=== PATIENT | female | born 1930 | race Caucasian/White ===

== ENCOUNTER → 2016-11-16 | Outpatient (CLI) | payer MEDICARE, BC ==
[~2016-11-16] MED LIST: ADALAT CC60 MG PO; ALEVE 220MG220 MG PO; AMBIEN 5MG TABLE5 MG PO; AMOXICILLIN 50500 MG PO; ANTIVERT 25MG25 MG PO; BONIVA150 MG PO; CALCIUM ANTAC1000 M2 PO; CAMPRAL333 MG PO; CEPHALEXIN250 M1 PO; DILAUDID 2MG TAB2 MG PO; EFFER-K10 MEQ PO; EFFEXOR XR75 MG/CAP PO; GLUCOPHAGE500 MG/TAB PO; K-DUR 10 MEQ T10 MEQ PO; K-LOR CON; LEVAQUIN 5500 MG/TA1 PO; LEVAQUIN 5500 MG/TAB PO; LEXAPRO 10MG10 MG PO; LEXAPRO20 MG PO; MELATONIN5 M1 SL; METRONIDAZOLE500 MG PO; MIRAPEX; MIRAPEX0.5 MG PO; MULTIPLE VITAMI1 CAP PO; MULTIVITAMIN1 TA1 PO; MVI; MYLANTA 150 ML150 M1 PO; NORCO 325 MG-51 TAB PO; PRILOSEC 20MG20 MG PO; PROCARDIA XL 6060 MG PO; RISPERDAL 0.5M0.5 MG PO; SENNA8.6 MG PO; SEROQUEL 2525 MG/TAB PO; SEROQUEL50 MG PO; TENORMIN 2525 MG/TAB PO; TRAZODO50 MG PO; TYLENOL 500MG500 MG PO; ULTRAM 50MG TAB50 MG PO; VALIUM 5MG T5 MG/TAB PO; ZOFRAN 4MG T4 MG/TAB PO; ZOSTRIX 0.025% TP; ZYPREXA 5MG5 MG PO
[2016-11-16 18:24] LABS: CALCIUM 9.3 mg/dL (8.4-10.2); CREATININE, serum 0.92 mg/dL (0.52-1.25); POTASSIUM 3.7 mmol/L (3.4-5.0)
== END ==
LOC: ZLAB.STJ 15:25
PROVIDERS: Internal Medicine
DX: Z01.89 Encounter for other specified special examinations (principal)

== ENCOUNTER 2017-02-22 11:09 | Emergency (ER) | payer MEDICARE, BC ==
[~2017-02-22] VITALS: Ht 165.1 cm; Wt 81.8 kg
[~2017-02-22 11:09] MED LIST changes: -AMBIEN 5MG TABLE5 MG PO; -AMOXICILLIN 50500 MG PO; -MELATONIN5 M1 SL; -PROCARDIA XL 6060 MG PO; -RISPERDAL 0.5M0.5 MG PO; -SENNA8.6 MG PO
[2017-02-22 11:13] VITALS: TEMP 97
[2017-02-22] MEDS ORDERED: ZOFRAN 4MG T4 MG/TAB PO (11:32)
[2017-02-22] MEDS ORDERED: PROCARDIA XL 6060 MG PO (11:33)
[2017-02-22] MEDS ORDERED: ZYPREXA 5MG5 MG PO (11:34)
[2017-02-22] MEDS ORDERED: MELATONIN5 M1 SL (11:35)
[2017-02-22] MEDS ORDERED: AMOXICILLIN 50500 MG PO (11:35)
[2017-02-22] MEDS ORDERED: BONIVA150 MG PO (11:36)
[2017-02-22] MEDS ORDERED: AMBIEN 5MG TABLE5 MG PO (11:36)
[2017-02-22] MEDS ORDERED: SENNA8.6 MG PO (11:38)
[2017-02-22] MEDS ORDERED: RISPERDAL 0.5M0.5 MG PO (11:39)
[2017-02-22 12:28] LABS: BASO % 0.3 % (0.0-2.0); EOS # 0.2 (0.0-0.7); EOS % 2.7 % (0-4.0); GRAN # 4.7 (1.4-6.5); GRAN % 63.4 % (42.2-75.2); HEMOGLOBIN 15.5 g/dl (12.5-16.0); LYMPH # 1.6 (1.2-3.4); LYMPH % 21.7 % (20.0-51.0); MEAN CELL VOLUME 93 fl (80.0-100.0); MEAN CORPUSCULAR HEMOGLOBIN 30 pg (27.0-31.0); MEAN CORPUSCULAR HGB CONC 32 g/dl (33.0-37.0); MEAN PLATELET VOLUME 9.8 fl (7.4-10.4); MONO # 0.9 (0.1-0.6); MONO % 11.5 % (1.7-9.3); PLATELET COUNT 271 K/mm3 (130-400); RED BLOOD COUNT 5.19 M/mm3 (4.10-5.30); REDCELL DISTRIBUTION WIDTH-CV 15.5 % (11.5-14.5); WHITE BLOOD COUNT 7.5 K/mm3 (4.8-10.8)
[2017-02-22 12:33] LABS: ALBUMIN 4.4 gm/dL (3.5-5.0); BILIRUBIN,TOTAL 0.5 mg/dL (0.0-1.0); CALCIUM 9.3 mg/dL (8.4-10.2); CREATININE, serum 0.73 mg/dL (0.52-1.25); POTASSIUM 3.7 mmol/L (3.4-5.0); TOTAL PROTEIN 7.9 gm/dL (6.4-8.2)
[2017-02-22 12:45] LABS: PH 7 (5-8); SQUAMOUS EPITHELIAL 0-2 /hpf; URINE APPEARANCE Clear; URINE BACTERIA None Seen /hpf; URINE BILIRUBIN Negative (NEGATIVE); URINE BLOOD Negative (NEGATIVE); URINE COLOR Yellow; URINE GLUCOSE 1+ (NEGATIVE); URINE KETONE Negative (NEGATIVE); URINE RBC 0-2 /hpf; URINE UROBILINOGEN Negative (NEGATIVE); URINE WBC 0-2 /hpf
[2017-02-22 13:57] VITALS: BP 151/90; PULSE 94
== END 2017-02-22 14:02 | disposition home or self-care (01) ==
LOC: COL.ER 11:09
PROVIDERS: Nurse Practitioner
DX: S70.02XA Contusion of left hip, initial encounter (principal); R41.82 Altered mental status, unspecified; E11.9 Type 2 diabetes mellitus without complications; Z79.84 Long term (current) use of oral hypoglycemic drugs; I10 Essential (primary) hypertension; Z87.891 Personal history of nicotine dependence; W06.XXXA Fall from bed, initial encounter; Y92.122 Bedroom in nursing home as the place of occurrence of the external cause

== ENCOUNTER → 2017-05-23 | Outpatient (CLI) | payer MEDICARE, BC ==
[~2017-05-23] MED LIST changes: +AMBIEN 5MG TABLE5 MG PO; +AMOXICILLIN 50500 MG PO; +MELATONIN5 M1 SL; +PROCARDIA XL 6060 MG PO; +RISPERDAL 0.5M0.5 MG PO; +SENNA8.6 MG PO
[2017-05-23 17:09] LABS: BASO % 0.4 % (0.0-2.0); EOS # 0.2 (0.0-0.7); EOS % 2.9 % (0-4.0); GRAN # 4.1 (1.4-6.5); GRAN % 59.4 % (42.2-75.2); HEMOGLOBIN 14.7 g/dl (12.5-16.0); LYMPH # 1.9 (1.2-3.4); LYMPH % 26.9 % (20.0-51.0); MEAN CELL VOLUME 92 fl (80.0-100.0); MEAN CORPUSCULAR HEMOGLOBIN 29 pg (27.0-31.0); MEAN CORPUSCULAR HGB CONC 32 g/dl (33.0-37.0); MEAN PLATELET VOLUME 10.1 fl (7.4-10.4); MONO # 0.7 (0.1-0.6); PLATELET COUNT 329 K/mm3 (130-400); RED BLOOD COUNT 5.02 M/mm3 (4.10-5.30); WHITE BLOOD COUNT 6.9 K/mm3 (4.8-10.8)
== END ==
LOC: ZCOL.LAB 16:58
PROVIDERS: Internal Medicine
DX: I10 Essential (primary) hypertension (principal); E11.9 Type 2 diabetes mellitus without complications

== ENCOUNTER → 2017-05-28 | Outpatient (CLI) | payer MEDICARE, BC ==
[2017-05-28 17:31] LABS: ADJUSTED CALCIUM 9.6 mg/dL (8.4-10.2); ALBUMIN 4.5 gm/dL (3.5-5.0); BILIRUBIN,TOTAL 0.8 mg/dL (0.0-1.0); CREATININE, serum 0.77 mg/dL (0.52-1.25); POTASSIUM 4.4 mmol/L (3.4-5.0)
== END ==
LOC: ZCOL.LAB 16:37
PROVIDERS: Internal Medicine
DX: E11.9 Type 2 diabetes mellitus without complications (principal)

== ENCOUNTER → 2017-08-21 | Outpatient (CLI) | payer MEDICARE, BC | LOC: ZCOL.LAB 15:24 | PROVIDERS: Internal Medicine | DX: I10 Essential (primary) hypertension (principal) ==

== ENCOUNTER → 2017-09-26 | Outpatient (CLI) | payer MEDICARE, BC ==
[2017-09-26 13:57] LABS: COLLECTION METHOD CLEAN CATCH
[2017-09-26 14:10] LABS: PH 6 (5-8); SQUAMOUS EPITHELIAL None Seen /hpf; URINE APPEARANCE Clear; URINE BACTERIA Rare /hpf; URINE BILIRUBIN Negative (NEGATIVE); URINE BLOOD Negative (NEGATIVE); URINE COLOR Straw; URINE GLUCOSE Negative (NEGATIVE); URINE KETONE Negative (NEGATIVE); URINE LEUKOCYTE ESTERASE 1+ (NEGATIVE); URINE PROTEIN(semi-quant) Negative (NEGATIVE); URINE RBC 0-2 /hpf; URINE UROBILINOGEN Negative (NEGATIVE)
== END ==
LOC: ZCOL.LAB 13:55
PROVIDERS: Nurse Practitioner
DX: R30.0 Dysuria (principal)

== ENCOUNTER 2017-10-07 09:40 | Emergency (ER) | payer MEDICARE, BC ==
[~2017-10-07] VITALS: Ht 152.4 cm; Wt 65.9 kg
[2017-10-07 09:45] VITALS: TEMP 98.1
[2017-10-07 10:31] LABS: COLLECTION METHOD CATHETER
[2017-10-07 10:48] LABS: MUCOUS Present /lpf; PH 5 (5-8); SQUAMOUS EPITHELIAL None Seen /hpf; URINE APPEARANCE Clear; URINE BACTERIA None Seen /hpf; URINE BILIRUBIN Negative (NEGATIVE); URINE BLOOD Negative (NEGATIVE); URINE COLOR Yellow; URINE GLUCOSE Negative (NEGATIVE); URINE KETONE Negative (NEGATIVE); URINE LEUKOCYTE ESTERASE Negative (NEGATIVE); URINE PROTEIN(semi-quant) Negative (NEGATIVE); URINE RBC 0-2 /hpf; URINE UROBILINOGEN Negative (NEGATIVE)
[2017-10-07 10:50] LABS: HEMATOCRIT 42.2 % (37.0-47.0); HEMOGLOBIN 13.8 g/dl (12.5-16.0); MEAN CELL VOLUME 94 fl (80.0-100.0); MEAN CORPUSCULAR HEMOGLOBIN 31 pg (27.0-31.0); MEAN CORPUSCULAR HGB CONC 33 g/dl (33.0-37.0); PLATELET COUNT 216 K/mm3 (130-400); RED BLOOD COUNT 4.49 M/mm3 (4.10-5.30); WHITE BLOOD COUNT 6.9 K/mm3 (4.8-10.8)
[2017-10-07 10:51] LABS: ADD PATHOLOGY DIFF REVIEW NO
[2017-10-07 11:00] LABS: ADJUSTED CALCIUM 9.3 mg/dL (8.4-10.2); ALANINE AMINOTRANSFERASE 22 U/L (9-52); ALBUMIN 3.9 gm/dL (3.5-5.0); ALKALINE PHOSPHATASE 59 U/L (50-136); ANION GAP 9 mmol/L (7-16); BILIRUBIN,TOTAL 0.5 mg/dL (0.0-1.0); BLOOD UREA NITROGEN 21 mg/dL (7-17); CALCIUM 9.2 mg/dL (8.4-10.2); CARBON DIOXIDE 26 mmol/L (22-30); CHLORIDE 106 mmol/L (98-107); CREATININE, serum 1.07 mg/dL (0.52-1.25); GLUCOSE 88 mg/dL (74-106); POTASSIUM 4.5 mmol/L (3.4-5.0); SODIUM 140 mmol/L (137-145); TOTAL PROTEIN 6.8 gm/dL (6.4-8.2)
[2017-10-07 11:03] LABS: C-REACTIVE PROTEIN < 0.5 mg/dL (0.0-0.9)
[2017-10-07 11:45] VITALS: BP 122/50; PULSE 82
[2017-10-07] MEDS ORDERED: TYLENOL 325MG325 MG PO (12:02)
[2017-10-07] MEDS ORDERED: AMOXICILLIN 50500 MG PO (12:04)
[2017-10-07] MEDS ORDERED: ZANTAC 150MG T150 MG PO (12:17)
[2017-10-07] MEDS ORDERED: OYSTERCAL-D 5001 TAB PO (12:18)
[2017-10-07] MEDS ORDERED: ZOCOR 20MG20 MG PO (12:19)
[2017-10-07] MEDS ORDERED: VITAMIN B-1000 MCG/T PO (12:20)
[2017-10-07] MEDS ORDERED: TOPROL XL 25MG25 MG PO (12:23)
[2017-10-07 12:29] LABS: BAND 23 % (0-10); EOSINOPHIL 1 % (0-4); LYMPHOCYTE 47 % (20.0-51.0); MYELOCYTE 1 % (0-0); NEUTROPHILS 28 % (42.0-75.2); PLATELET ESTIMATE NORMAL (NORMAL); TOTAL CELLS COUNTED 100
== END 2017-10-07 11:45 | disposition home or self-care (01) ==
LOC: COL.ER 09:40
PROVIDERS: Family Medicine
DX: N39.0 Urinary tract infection, site not specified (principal); E11.9 Type 2 diabetes mellitus without complications; K21.9 Gastro-esophageal reflux disease without esophagitis

== ENCOUNTER → 2017-11-06 | Outpatient (CLI) | payer MEDICARE, BC ==
[~2017-11-06] MED LIST changes: +OYSTERCAL-D 5001 TAB PO; +TOPROL XL 25MG25 MG PO; +TYLENOL 325MG325 MG PO; +VITAMIN B-1000 MCG/T PO; +ZANTAC 150MG T150 MG PO; +ZOCOR 20MG20 MG PO
[2017-11-06 11:04] LABS: BASO % 0.6 % (0.0-2.0); EOS # 0.1 (0.0-0.7); EOS % 1.7 % (0-4.0); GRAN # 4.2 (1.4-6.5); GRAN % 58.6 % (42.2-75.2); HEMATOCRIT 45.6 % (37.0-47.0); HEMOGLOBIN 14.5 g/dl (12.5-16.0); LYMPH # 1.9 (1.2-3.4); LYMPH % 26.8 % (20.0-51.0); MEAN CELL VOLUME 99 fl (80.0-100.0); MEAN CORPUSCULAR HEMOGLOBIN 31 pg (27.0-31.0); MEAN CORPUSCULAR HGB CONC 32 g/dl (33.0-37.0); MEAN PLATELET VOLUME 10.5 fl (7.4-10.4); MONO # 0.8 (0.1-0.6); MONO % 11.9 % (1.7-9.3); PLATELET COUNT 206 K/mm3 (130-400); RED BLOOD COUNT 4.63 M/mm3 (4.10-5.30); WHITE BLOOD COUNT 7.1 K/mm3 (4.8-10.8)
== END ==
LOC: ZCOL.LAB 10:45
PROVIDERS: Nurse Practitioner
DX: I10 Essential (primary) hypertension (principal)

== ENCOUNTER 2017-11-19 10:58 | Emergency (ER) | payer MEDICARE, BC ==
[2017-11-19 11:29] VITALS: BP 137/76
[2017-11-19 12:00] LABS: COLLECTION METHOD CATHETER
[2017-11-19 12:07] LABS: PH 6 (5-8); SQUAMOUS EPITHELIAL 0-2 /hpf; URINE APPEARANCE Clear; URINE BACTERIA None Seen /hpf; URINE BILIRUBIN Negative (NEGATIVE); URINE BLOOD Negative (NEGATIVE); URINE COLOR Straw; URINE GLUCOSE Negative (NEGATIVE); URINE KETONE Negative (NEGATIVE); URINE LEUKOCYTE ESTERASE Negative (NEGATIVE); URINE NITRATE Negative (NEGATIVE); URINE PROTEIN(semi-quant) Negative (NEGATIVE); URINE RBC 0-2 /hpf; URINE UROBILINOGEN Negative (NEGATIVE)
[2017-11-19 12:21] LABS: ALANINE AMINOTRANSFERASE 29 U/L (9-52); ALBUMIN 4.6 gm/dL (3.5-5.0); ALKALINE PHOSPHATASE 70 U/L (50-136); ANION GAP 11 mmol/L (7-16); AST,SGOT 24 U/L (15-37); BILIRUBIN,TOTAL 0.6 mg/dL (0.0-1.0); BLOOD UREA NITROGEN 22 mg/dL (7-17); CALCIUM 9.7 mg/dL (8.4-10.2); CARBON DIOXIDE 25 mmol/L (22-30); CHLORIDE 105 mmol/L (98-107); CREATININE, serum 0.85 mg/dL (0.52-1.25); GLUCOSE 87 mg/dL (74-106); MAGNESIUM 2.1 mg/dL (1.6-2.3); PHOSPHOROUS 4.3 mg/dL (2.5-4.5); POTASSIUM 4.4 mmol/L (3.4-5.0); SODIUM 141 mmol/L (137-145); TOTAL PROTEIN 7.4 gm/dL (6.4-8.2)
[2017-11-19 12:24] LABS: PROTHROMBIN TIME 11.6 SECONDS (9.7-12.8)
[2017-11-19 12:26] LABS: PARTIAL THROMBOPLASTIN TIME 31.1 SECONDS (26.0-37.0)
[2017-11-19 12:45] LABS: TROPONIN-I < 0.012 ng/mL (0.000-0.034)
[2017-11-19 13:17] LABS: AMMONIA 9 umol/L (11-35)
[2017-11-19 14:33] LABS: BASO % 0.3 % (0.0-2.0); EOS # 0.2 (0.0-0.7); EOS % 2.3 % (0-4.0); GRAN # 5.1 (1.4-6.5); GRAN % 59.9 % (42.2-75.2); HEMATOCRIT 44.3 % (37.0-47.0); HEMOGLOBIN 14.5 g/dl (12.5-16.0); LYMPH # 2.2 (1.2-3.4); LYMPH % 26.1 % (20.0-51.0); MEAN CELL VOLUME 96 fl (80.0-100.0); MEAN CORPUSCULAR HEMOGLOBIN 31 pg (27.0-31.0); MEAN CORPUSCULAR HGB CONC 33 g/dl (33.0-37.0); MEAN PLATELET VOLUME 10.6 fl (7.4-10.4); MONO % 11.2 % (1.7-9.3); PLATELET COUNT 216 K/mm3 (130-400); RED BLOOD COUNT 4.63 M/mm3 (4.10-5.30); REDCELL DISTRIBUTION WIDTH-CV 15.1 % (11.5-14.5)
[2017-11-19 14:49] VITALS: PULSE 87
== END 2017-11-19 14:49 | disposition home or self-care (01) ==
LOC: COL.ER 10:58
PROVIDERS: Emergency Medicine
DX: S00.83XA Contusion of other part of head, initial encounter (principal); S09.90XA Unspecified injury of head, initial encounter; F03.90 Unspecified dementia, unspecified severity, without behavioral disturbance, psychotic disturbance, mood disturbance, and anxiety; W19.XXXA Unspecified fall, initial encounter